=== PATIENT | male | born 1995 | race Caucasian/White ===

== ENCOUNTER → 2017-02-01 | Outpatient (CLI) | payer BC ==
[~2017-02-01] MED LIST: GADOBUTROL 10mMol/10ml INJECTION IV ONE; NORMAL SALINE 50 ML IV ONE; SALINE FLUSH 10ml SYRINGE ONE
--- NOTE | 2017-02-01 16:56 | DI ---
Indication: ITS.REASON: E29.1 Testicular hypofunction PROCEDURE: MRI BRAIN and pituitary W/WO CONTRAST: Encounter: Initial Comparisons: None Technique: Multiplanar, multisequence, MR imaging of the head with and without contrast was acquired. Special sequences were performed with attention to the pituitary gland with dynamic postcontrast imaging. Contrast: 10 mL of Gadavist FINDINGS: Pituitary: The pituitary gland appears slightly decreased in volume for a patient of this age but otherwise normal. Normal location of the posterior pituitary bright spot. No hyper or hypointense pituitary lesions identified. No abnormal areas of hyper or hypoenhancement on the postcontrast sequences. The pituitary stalk is midline. Brain: The ventricles are of normal size, shape, and contour for the patient's age. Small pineal cyst incidentally. The brain stem, cerebellum, and cerebral hemispheres otherwise have a normal morphologic appearance as well as MR signal intensity on all pulse sequences. Following intravenous administration of contrast, no areas of abnormal enhancement are evident. There are no areas of restricted diffusion to suggest an acute infarct. There is no evidence of an intracranial mass lesion, intracranial hemorrhage, or hydrocephalus. Small left mastoid effusion. The visualized portions of the orbits, calvarium, paranasal sinuses, and skull base otherwise demonstrate no significant abnormality. 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 Otherwise normal appearance of the brain. .
== END ==
LOC: IMA 14:24
PROVIDERS: ATTEND Internal Medicine Endocrinology, Diabetes & Metabolism
DX: E29.1 Testicular hypofunction (principal); E23.6 Other disorders of pituitary gland
CPT/HCPCS: 70553; A9585; J7050